=== PATIENT | male | born 1980 | race Two or more races ===

== ENCOUNTER 2024-07-14 17:28 | Inpatient (IN) | payer BC, OTHER ==
[~2024-07-14] VITALS: Ht 167.6 cm; Wt 107.6 kg
[2024-07-14 18:00] VITALS: PULSE 127; RESP 13; O2SAT 99
--- NOTE | 2024-07-14 18:02 | DVH ---
INDICATION: chest pain TECHNIQUE: Frontal view of the chest. COMPARISON: None FINDINGS: Finding:. The heart and mediastinal contours are grossly unremarkable. There is no evidence of pleur al disease. The lungs are clear. The bony structures of the chest are intact without fracture. IMPRESSION: 1. No evidence of acute disease.
[2024-07-14 18:10] LABS: Lymphocytes # (auto) 2.3 10 ^3/uL (0.4-5.4); Red Cell Distribution Width 13.4 % (11.8-14.3); White Blood Cell 8.2 10^3/uL (4.4-10.8)
--- NOTE | 2024-07-14 18:11 | ED.PDOC ---
HPI Comments 43-year-old male with PMHx Anxiety, Atrial Flutter brought in by EMS presents to the ED with a c/o chest pain. Patient states that in May 2024 he experienced Atrial Flutter and had two failed cardioversion attempts. Patient had an Angiogram on SaturdayJuly 06 that "was clean". Patient is scheduled for an ablation in August 2024 for the atrial flutter. Patient states that his pain was localized to his left chest, radiates to his left shoulder, describes as pressure. 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 Location: Chest (L) Radiation: Shoulder (L) Quality: Pressure Onset: At Rest Cardiac Risk Factors: Other (Atrial Flutter) PE Risk Factors: None History of: None Modifying Factors: Nothing Associated Signs and Symptoms: Palpitations Past Medical History PAST MEDICAL HISTORY: Anxiety Past Medical History (Other): Atrial Flutter Surgical History (Other): transesophageal echo, angiogram a week ago Family History Family History: Reviewed,noncontributory to illness Social History Smoker: Non-Smoker Alcohol: Denies ETOH Use Drugs: Denies Drug Use Lives In: Home Constitutional: denies: chills, diaphoresis, fatigue, fever, malaise, sweats, weakness, others EENTM: denies: blurred vision, double vision, ear bleeding, ear discharge, ear drainage, ear pain, ear ringing, eye pain, eye redness, hearing loss, mouth pain, mouth swelling, nasal discharge, nose bleeding, nose congestion, nose pain, photophobia, tearing, throat pain, throat swelling, voice changes, others Respiratory: denies: cough, hemoptysis, orthopnea, SOB at rest, shortness of breath, SOB with excertion, stridor, wheezing, others Cardiovascular: reports: chest pain, palpitations; denies: dizzy spells, diaphoresis, Dyspnea on exertion, edema, irregular heart beat, left arm pain, lightheadedness, PND, syncope, others Gastrointestinal: denies: abdomen distended, abdominal pain, blood streaked bowels, constipated, diarrhea, dysphagia, difficulty swallowing, hematemesis, melena, nausea, poor appetite, poor fluid intake, rectal bleeding, rectal pain, vomiting, others Genitourinary: denies: burning, dysuria, flank pain, frequency, hematuria, incontinence, penile discharge, penile sore, pain, testicle pain, testicle swelling, urgency, others Neurological: denies: dizziness, fainting, headache, left sided numbness, left sided weakness, numbness, paresthesia, pre-existing deficit, right sided numbness, right sided weakness, seizure, speech problems, tingling, tremors, wea kness, others Musculoskeletal: denies: back pain, gout, joint pain, joint swelling, muscle pain, muscle stiffness, neck pain, others Integumetry: denies: bruises, change in color, change in hair/nails, dryness, l aceration, lesions, lumps, rash, wounds, others Allergic/Immunocompromised: denies: Difficulty Healing, Frequent Infections, Hives, Itching, others Hematologic/Lymphatic: denies: anemia, blood clots, easy bleeding, easy bruising, swollen glands, others Endocrine: denies: excessive hunger, excessive sweating, excessive thirst, excessive urination, flushing, intolerance to cold, intolerance to heat, unexplained weight gain, unexplained weight loss, others Psychiatric: denies: anxiety, bipolar disorder, depression, hopeless, panic disorder, schizophrenia, sleepless, suicidal, others All Other Systems: Reviewed and Negative Physical Exam General Appearance: No Apparent Distress, Normal HEENT: Normal ENT Inspection, Pharynx Normal, TMs Normal Neck: Full Range of Motion, Non-Tender, Normal, Normal Inspection Respiratory: Chest Non-Tender, Lungs Clear, No Accessory Muscle Use, No Respiratory Distress, Normal Breath Sounds Cardiovascular: No Edema, No JVD, No Murmur, No Gallop, Normal Peripheral Pulses, Regular Rate/Rhythm Breast Exam: Deferred Gastrointestinal: No Organomegaly, Non Tender, No Pulsatile Mass, Normal Bowel Sounds, Soft Genitalia: Deferred Pelvic: Deferred Rectal: Deferred Extremities: No calf tenderness, Normal capillary refill, Normal inspection, Normal range of motion, Non-tender, No pedal edema Musculoskeletal : Apperance: Normal Neurologic: Alert, decorating equipment setter II-XII nml as Tested, No Motor Deficits, Normal Affect, Normal Mood, No Sensory Deficits Cerebellar Function: Normal Reflexes: Normal Skin: Dry, Normal Color, Warm Lymphatic: No Adenopathy EKG EKG : Pulse Rate (adult): 125 [place]: Normal Cardiac Rhythm: Aflutter Block: None Hypertrophy: None ST: Nonsp Was a procedure done? Was a procedure done?: No CP Differential Dx Differential Diagnosis: A-fib, A-Flutter, Angina, Anxiety / Panic Attack, Atrial Dysrhythmia, AV Block 1st Degree, AV Block 2nd Degree, AV Block 3rd Degree, Electrolyte Disorder, AK, PSVT, Sinus Tachycardia, Torsades De Pointes Differential Diagnosis: Angina, Chest Wall Pain, Cholelithiasis, Costochondri tis, Myocardial Infarction, Pericarditis, Pneumonia, Pneumothorax, Pulmonary Embolus X-Ray, Labs, Meds, VS Vital Signs Date Time Temp Pulse Resp B/P (MAP) Pulse Ox O2 Delivery O2 Flow Rate FiO2 07/14/24 18:24 120 07/14/24 18:11 125 07/14/24 18:00 127 13 99 Room Air* 0 21 07/14/24 18:00 98.1 127 13 130/108 (115) 99 98.1 07/14/24 17:41 98.6 125 18 117/83 (94) 97 98.6 07/14/24 17:32 125 Lab Test 07/14/24 17:51 Range/Units White Blood Count 8.2 4.4-10.8 10^3/uL Red Blood Count 6.07 H 4.5-5.90 10^6/uL Hemoglobin 18.2 H 13.5-17.5 g/dL Hematocrit 52.3 41.0-53.0 % Mean Corpuscular Volume 86.2 80.0-100.0 fL Mean Corpuscular Hemoglobin 29.9 28.0-32.0 pg Mean Corpuscular Hemoglobin Concent 34.7 32.0-36.0 g/dL Red Cell Distribution Width 13.4 11.8-14.3 % Platelet Count 235 140-450 10^3/uL Mean Platelet Volume 9.5 6.9-10.8 fL Neutrophils (%) (Auto) 56.4 37.0-80.0 % Lymphocytes (%) (Auto) 28.2 10.0-50.0 % Monocytes (%) (Auto) 10.5 0.0-12.0 % Eosinophils (%) (Auto) 3.9 0.0-7.0 % Basophils (%) (Auto) 1.0 0.0-2.0 % Neutrophils # (Auto) 4.6 1.6-8.6 10 ^3/uL Lymphocytes # (Auto) 2.3 0.4-5.4 10 ^3/uL Monocytes # (Auto) 0.9 0-1.3 10 ^3/uL Eosinophils # (Auto) 0.3 0-0.8 10 ^3/uL Basophils # (Auto) 0.1 0-0.2 10 ^3/uL Nucleated Red Blood Cells 0.6 % Sodium Level 143 136-145 mmol/L Potassium Level 4.2 3.5-5.1 mmol/L Chloride Level 107 98-107 mmol/L Carbon Dioxide Level 26 20-31 mmol/L Anion Gap 10 5-15 Blood Urea Nitrogen 15 9-23 mg/dL Creatinine 1.33 H 0.700-1.30 mg/dL Glomerular Filtration Rate Calc 68 >90 mL/min BUN/Creatinine Ratio 11.3 10.0-20.0 Serum Glucose 94 74-106 mg/dL Calcium Level 10.1 8.7-10.4 mg/dL Troponin I High Sensitivity < 3 L </=54 ng/L B-Type Natriuretic Peptide Pending Current Medications Medications (Trade) Dose Ordered Sig/Raquel Route Start Time Stop Time Status Last Admin Sodium Chloride 1,000 ml @ 1,000 mls/hr Q1H ONCE IV 07/14/24 17:45 07/14/24 18:44 DC 07/14/24 18:30 Amiodarone HCl 100 ml @ 600 mls/hr ONCE ONCE IV 07/14/24 18:30 07/14/24 18:39 DC 07/14/24 18:37 Time of 1ST Reevaluation: 18:30 Reevaluation 1ST: Unchanged Time of 2ND Reevaluation: 19:03 Reevaluation 2ND: Improved Patient Education/Counseling: Diagnosis, Treatment, Prognosis, Need For Follow Up Family Education/Counseling: No Family Present Additional Information The following tests were ordered, and results were reviewed by me: TROPONIN x3, EKG x3, BMP, CBC, BNP, CXR, NS Additional information was gathered from interviewing the following independent historian: 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 pt does not have evidence of AK, but the pain is suspicious for unstable angina. pt will be admitted for cardiology evaluation. he had aflutter with RVR, which is now improved on amiodarone drip Departure 1 Departure Time of Disposition: 19:05 Impression: Primary Impression: Atrial flutter Qualified Codes: I48.92 - Unspecified atrial flutter Additional Impressions: Tachycardia Unstable angina Disposition: ADMITTED INPATIENT Admit to: ICU Condition: Serious Discharged With: Self Critical Care Note Critical Care Time?: Yes (55 min-critical care time only) Critical care comment: due to concerns for patient's condition deteriorating, the care required my highest level of attention and readiness to intervene. i assessed the patient's condition, ordered the proper tests and treatments, reassessed for response and reviewed the results. i communicated with medical personnel and formulated a plan of care. total critical care time does not include any procedures Stability Stability form required: No Heart Score Heart Score: Heart Score Response (Comments) Value History Highly Suspicious 2 EKG Repolarization Disturb 1 Age 45-64 1 Risk Factors 1 or 2 risk factors 1 Troponin Normal limit 0 Total 5 I personally scribed for K[facility] PRESSLEY [email or web address] on 07/14/24 at 18:11. Electronically submitted by Trevor Rodriguez ([email or web address]). I personally scribed for KATIE PRESSLEY MD ([email or web address]) on 07/14/24 at 18:13. Electronically submitted by Trevor Rodriguez ([email or web address]). KATIE PRESSLEY MD July 14, 2024 18:11
[2024-07-14 18:12] LABS: Basophils # (auto) 0.1 10 ^3/uL (0-0.2); Eosinophils # (auto) 0.3 10 ^3/uL (0-0.8); Eosinophils % (auto) 3.9 % (0.0-7.0); Hematocrit 52.3 % (41.0-53.0); Hemoglobin 18.2 g/dL (13.5-17.5); Lymphocytes % (auto) 28.2 % (10.0-50.0); Mean Corpuscular Hemoglobin 29.9 pg (28.0-32.0); Mean Corpuscular Hgb Conc. 34.7 g/dL (32.0-36.0); Mean Corpuscular Volume 86.2 fL (80.0-100.0); Monocytes # (auto) 0.9 10 ^3/uL (0-1.3); Monocytes % (auto) 10.5 % (0.0-12.0); Neutrophils # (auto) 4.6 10 ^3/uL (1.6-8.6); Neutrophils % (auto) 56.4 % (37.0-80.0); Nucleated Red Blood Cells % 0.6 %; Platelet Count (auto) 235 10^3/uL (140-450); Red Blood Cells 6.07 10^6/uL (4.5-5.90)
[2024-07-14 18:17] LABS: Potassium 4.2 mmol/L (3.5-5.1); Sodium 143 mmol/L (136-145)
[2024-07-14 18:18] LABS: Anion Gap 10 (5-15); Calcium 10.1 mg/dL (8.7-10.4); Carbon Dioxide 26 mmol/L (20-31)
[2024-07-14 18:23] LABS: BUN/Creatinine Ratio 11.3 (10.0-20.0); Blood Urea Nitrogen 15 mg/dL (9-23); Glucose 94 mg/dL (74-106)
[2024-07-14 18:29] LABS: Chloride 107 mmol/L (98-107)
[2024-07-14] MEDS: SODIUM CHLORIDE 0.9% 1,000 ML IV ONE (18:30)
[2024-07-14] MEDS: AMIODARONE BOLUS KIT 100 ML IV ONE ×2 (18:37→20:44)
[2024-07-14] MEDS: AMIODARONE 360mg/200mL PREMIX 200 ML IV ONE (19:07)
[2024-07-14] MEDS ORDERED: ONDANSETRON HCL 4 MG/2 ML VIAL IV PRN (19:15)
[2024-07-14] MEDS ORDERED: MORPHINE SULFATE INJ 2 MG/ml SYRG IV PRN (19:15)
[2024-07-14] MEDS ORDERED: NITROGLYCERIN 0.4 MG SL TAB SL PRN (19:15)
[2024-07-14] MEDS ORDERED: TEMAZEPAM 15 MG CAP PO PRN ×2 (19:15→22:00)
[2024-07-14] MEDS ORDERED: ACETAMINOPHEN 325 MG TAB PO PRN (19:15)
[2024-07-14] MEDS: ASPirin 81 mg TAB PO ONE (20:05)
--- NOTE | 2024-07-14 22:05 | DVHHP2 ---
History of Present Illness Reason for Visit: CHEST PAIN History of Present Illness 43-YEAR-OLD MALE PRESENTS FOR EVALUATION OF CHEST PAIN. PATIENT REPORTS DEVELOPING LEFT-SIDED CHEST PRESSURE WHICH RADIATED TO HIS LEFT SHOULDER. PATIENT RECENTLY DIAGNOSED WITH ATRIAL FLUTTER. HE WAS SUPPOSED TO HAVE AN ABLATION THIS PAST SATURDAY BUT WAS CANCELED. DENIES SHORTNESS OR BREATH OR DIZZINESS. HE STATES HIS NEXT SCHEDULED ABLATION IS UNTIL AUGUST OF THIS YEAR. Past Medical History ANXIETY AND A FLUTTER Past Surgical History DENIES Family History NONCONTRIBUTORY Smoke: No ALCOHOL: none Drugs: None Lives: with Family Review of Systems Review of Systems REVIEW OF SYSTEMS ARE CURRENTLY NEGATIVE OTHERWISE ADDRESSED IN HPI. Allergies: Coded Allergies: NO KNOWN ALLERGIES (Unverified , 07/14/24) Medications Current Medications Medications Dose Ordered Sig/Raquel Route Start Time Stop Time Status Last Admin Dose Admin Nitroglycerin 0.4 mg Q5MINP PRN SL 07/14/24 19:15 Morphine Sulfate 2 mg Q30M PRN IV 07/14/24 19:15 Carvedilol 6.25 mg Q12HR PO 07/14/24 22:00 Sacubitril/ Valsartan 0.5 tab BID PO 07/15/24 10:00 Gabapentin 100 mg BID PO 07/14/24 22:00 Apixaban 5 mg BID PO 07/14/24 22:00 Aspirin 81 mg DAILY PO 07/15/24 10:00 Temazepam 15 mg QHSP PRN PO 07/14/24 19:15 Ondansetron HCl 4 mg Q4HP PRN IV 07/14/24 19:15 Acetaminophen 650 mg Q6HP PRN PO 07/14/24 19:15 Temazepam 15 mg HSPRN PRN PO 07/14/24 22:00 UNV Exam Vital Signs Vital Signs Date Time Temp Pulse Resp B/P (MAP) Pulse Ox O2 Delivery O2 Flow Rate FiO2 07/14/24 20:23 120 07/14/24 18:00 13 99 Room Air* 0 21 07/14/24 18:00 98.1 130/108 (115) 98.1 Exam GEN: 43-YEAR-OLD MALE IN MILD DISTRESS SKIN: WARM, DRY, NORMAL COLOR AND TEXTURE, NO RASH. HEENT: NORMOCEPHALIC ATRAUMATIC, MUCOUS MEMBRANES MOIST AND PINK. NECK: CERVICAL AND SUPRACLAVICULAR NODES NORMAL WITHOUT ENLARGEMENT, TRACHEA IS MIDLINE, THYROID GLAND IS NORMAL WITHOUT MASSES. PULMONARY: CLEAR TO AUSCULTATION AND PERCUSSION BILATERALLY. CARDIAC: I A FLUTTER ABDOMEN: SOFT, NONTENDER, NONDISTENDED, BOWEL SOUNDS PRESENT ALL 4 QUADRANTS, NO GUARDING, NO RIGIDITY, NO ORGANOMEGALY. EXTREMITIES: NO CYANOSIS, CLUBBING, NO EDEMA NEURO: CRANIAL NERVES II THROUGH XII GROSSLY INTACT, NORMAL AFFECT AND SPEECH, NO FOCAL MOTOR DEFICITS. Labs/Xrays ORDERING PHYSICIAN: THEODORA THAKUR MD PROCEDURE(s): CXRP - CHEST PORTABLE REASON: chest pain ORDER NUMBER(s): [id number], ACCESSION NUMBER(s): [id number] INDICATION: chest pain TECHNIQUE: Frontal view of the chest. COMPARISON: None FINDINGS: Finding:. The heart and mediastinal contours are grossly unremarkable. There is no evidence of pleural disease. The lungs are clear. The bony structures of the chest are intact without fracture. IMPRESSION: 1. No evidence of acute disease. Labs Test 07/14/24 19:10 07/14/24 17:51 Range/Units Troponin I High Sensitivity < 3 L </=54 ng/L Thyroid Stimulating Hormone (TSH) 3.37 0.55-4.78 uIU/mL White Blood Count 8.2 4.4-10.8 10^3/uL Red Blood Count 6.07 H 4.5-5.90 10^6/uL Hemoglobin 18.2 H 13.5-17.5 g/dL Hematocrit 52.3 41.0-53.0 % Mean Corpuscular Volume 86.2 80.0-100.0 fL Mean Corpuscular Hemoglobin 29.9 28.0-32.0 pg Mean Corpuscular Hemoglobin Concent 34.7 32.0-36.0 g/dL Red Cell Distribution Width 13.4 11.8-14.3 % Platelet Count 235 140-450 10^3/uL Mean Platelet Volume 9.5 6.9-10.8 fL Neutrophils (%) (Auto) 56.4 37.0-80.0 % Lymphocytes (%) (Auto) 28.2 10.0-50.0 % Monocytes (%) (Auto) 10.5 0.0-12.0 % Eosinophils (%) (Auto) 3.9 0.0-7.0 % Basophils (%) (Auto) 1.0 0.0-2.0 % Neutrophils # (Auto) 4.6 1.6-8.6 10 ^3/uL Lymphocytes # (Auto) 2.3 0.4-5.4 10 ^3/uL Monocytes # (Auto) 0.9 0-1.3 10 ^3/uL Eosinophils # (Auto) 0.3 0-0.8 10 ^3/uL Basophils # (Auto) 0.1 0-0.2 10 ^3/uL Nucleated Red Blood Cells 0.6 % Sodium Level 143 136-145 mmol/L Potassium Level 4.2 3.5-5.1 mmol/L Chloride Level 107 98-107 mmol/L Carbon Dioxide Level 26 20-31 mmol/L Anion Gap 10 5-15 Blood Urea Nitrogen 15 9-23 mg/dL Creatinine 1.33 H 0.700-1.30 mg/dL Glomerular Filtration Rate Calc 68 >90 mL/min BUN/Creatinine Ratio 11.3 10.0-20.0 Serum Glucose 94 74-106 mg/dL Calcium Level 10.1 8.7-10.4 mg/dL B-Type Natriuretic Peptide 47.85 0-100 pg/mL Assessment/Plan Assessment/Plan ASSESSMENT A FLUTTER CHEST PAIN ACUTE KIDNEY INJURY ANXIETY PLAN ADMIT THE PATIENT TO TELEMETRY TO THE HOSPITALIST CONTINUE AMIODARONE DRIP CARDIOLOGY CONSULT RESUME HOME MEDICATIONS CONTINUE TREATMENT PER ORDERS. Plan discussed with: Patient My Orders Orders - GORDO MCDOWELL AGACNP Procedure Category Date Status Time Nitroglycerin PHA 07/14/24 In Process Sublingual (Ntrostat 19:15 Morphine Sulfate PHA 07/14/24 In Process Injection 19:15 Stat Ekg For Chest GINA 07/14/24 In Process Pain 19:10 Notify Of Changes GINA 07/14/24 In Process From Base 19:10 Business Proposal Rep For GINA 07/14/24 In Process 24 Hours 19:10 Emergency Dysrhythmia GINA 07/14/24 In Process Protocol 19:10 Rhythm Strips Once GINA 07/14/24 In Process Every Shift 19:10 Oxygen By Nasal RT 07/14/24 Transmitted Cannula 19:10 Carvedilol Tablet PHA 07/14/24 In Process (Coreg Tablet) 22:00 Sacubitril-Valsartan PHA 07/15/24 In Process (Entresto 24-26 Mg 10:00 Gabapentin Capsule PHA 07/14/24 In Process (Neurontin Capsule) 22:00 Apixaban (Eliquis) PHA 07/14/24 In Process 22:00 Aspirin Tablet PHA 07/15/24 In Process 10:00 Basic Metabolic Panel LAB 07/15/24 Verified 04:00 Temazepam (Restoril) PHA 07/14/24 In Process 19:15 Ondansetron Hcl PHA 07/14/24 In Process (Zofran) 19:15 Cardiac DIET 07/15/24 Transmitted Diet-2gna,Lofat,Lochol Breakfast Echo 2d Mode Cardiac US 07/14/24 Logged DOP 19:12 Condition: Fair IGNA 07/14/24 In Process 19:12 Acetaminophen Tablet PHA 07/14/24 In Process (Tylenol Tablet) 19:15 Bedrest With Bathroom GINA 07/14/24 In Process Privileg 19:12 Admit ADMIT 07/14/24 Transmitted 21:53 * Cardiology Consult CONS 07/14/24 Transmitted 21:53 Lipid Panel LAB 07/14/24 In Process 21:53 Temazepam (Restoril) PHA 07/14/24 Logged 22:00 Date of Service: July 14, 2024 Billing Provider: GORDO MCDOWELL Common Visit Codes: [id number] INP/OBS CARE (HIGH) GORDO MCDOWELL July 14, 2024 22:05
[2024-07-14 22:15] LABS: Triglycerides 116 mg/dL (< 150)
[2024-07-14 22:17] LABS: Cholesterol 188 mg/dL (< 200); HDL Cholesterol 45 mg/dL (40-59)
[2024-07-14 22:41] VITALS: BP 112/85; PULSE 96; RESP 18; TEMP 98.1; O2SAT 96
[2024-07-14] MEDS ORDERED: GAB100C PO (22:53)
[2024-07-14] MEDS ORDERED: SACU1TAB PO (22:53)
[2024-07-14] MEDS ORDERED: APIX5TAB PO (22:53)
[2024-07-14] MEDS ORDERED: AMIO200T13 PO (22:53)
[2024-07-14] MEDS ORDERED: CARV6.2551 PO (22:53)
[2024-07-14 22:54] LABS: LDL Cholesterol 141 mg/dL (< 100)
[2024-07-14] MEDS: GABAPENTIN 100 MG CAP PO SCH (23:13)
[2024-07-14] MEDS: APIXABAN 5 MG TAB PO SCH (23:13)
[2024-07-14] MEDS: ALPRAZolam 0.25 MG TAB PO ONE (23:13)
[2024-07-14] MEDS: CARVEDILOL 3.125 MG TAB PO SCH (23:14)
[2024-07-15] VITALS (8 sets, daily range): BP systolic 98–116; BP diastolic 63–90; PULSE 86–117; RESP 17–20; TEMP 97.5–98.4; O2SAT 93–97
[2024-07-15] MEDS: AMIODARONE 360mg/200mL PREMIX 200 ML IV SCH (00:16)
[2024-07-15 07:10] LABS: Potassium 3.6 mmol/L (3.5-5.1); Sodium 143 mmol/L (136-145)
[2024-07-15 07:12] LABS: Anion Gap 7 (5-15); Carbon Dioxide 28 mmol/L (20-31)
[2024-07-15 07:17] LABS: BUN/Creatinine Ratio 7.8 (10.0-20.0); Blood Urea Nitrogen 10 mg/dL (9-23); Glucose 96 mg/dL (74-106)
[2024-07-15 07:18] LABS: Chloride 108 mmol/L (98-107)
[2024-07-15 07:19] LABS: Calcium 8.4 mg/dL (8.7-10.4)
[2024-07-15 09:03] LABS: Albumin 3.8 g/dL (3.2-4.8); Bilirubin, Total 0.4 mg/dL (0.2-1.0); Magnesium 2.3 mg/dL (1.6-2.6); Total Protein 6.3 g/dL (5.7-8.2)
[2024-07-15 09:44] LABS: INR 1.14 (0.9-1.15); Partial Thromboplastin Time 31.6 SEC (24.5-34.5); Prothrombin Time 11.9 sec (9.3-11.8)
[2024-07-15] MEDS: ASPirin 81 mg TAB PO SCH (09:58)
[2024-07-15] MEDS: SACUBITRIL-VALSARTAN 24mg/26mg TAB PO SCH (09:58)
[2024-07-15 10:16] LABS: Bilirubin, Direct 0.1 mg/dL (<0.3)
--- NOTE | 2024-07-15 10:26 | DVHINCON2 ---
Date Seen: July 15, 2024 Referring Physician AYSE Salas Reason for Consultation Atrial flutter History of Present Illness This is a 43-year-old male with past medical history of atrial flutter came to the hospital due to chest pain. Per patient, he had developed left-sided chest pain while driving. He describes the pain as burning type, 8/10 in intensity, radiated to left upper limb, with no clear exacerbating or relieving factor. Pain lasted for almost 20 minutes before came to the hospital, intensity gradually decreased and improved by getting medicine in hospital. He also reports nausea, and sweating. He denies shortness of breaths, cough, fever, palpitation, vomiting, abdominal pain, or any recent chest traumas/sick contact. Patient was diagnosed with atrial flutter at January 2024, underwent coronary angiogram on 07/10/2024 (per patient the study was normal, no records available), the patient was planned for ablation on 07/10/2024 but due to device malfunction in the ablation postponed for 07/17/2024. PMHx: Atrial flutter and Sciatalgia PSHx: Not significant Family history: Mom had hypertension Social history: Denies smoking, or any other drug history Home medication: Amiodarone 200 mg b.i.d., PA apixaban 5 mg b.i.d., aspirin 81 mg daily, carvedilol 6.25 b.i.d., Entresto b.i.d., gabapentin Allergic history: No known allergy Patient seen and examined at bedside. Patient is currently asymptomatic and has no chest pain and shortness of breath. Past Medical History Per H&P Past Surgical History Per H&P Family History: Diabetes mellitus G8 MOTHER G8 FATHER G8 SISTER Hypertension G8 MOTHER Family History Per H&P Social History Per H&P Allergies: Coded Allergies: NO KNOWN ALLERGIES (Unverified , 07/14/24) Home Meds Reported Medications Gabapentin (Gabapentin) 100 Mg Cap, 200 CAP PO HS 07/14/24 Apixaban Base (ELIQUIS) 5 Mg Tab, 1 TAB PO BID 07/14/24 Carvedilol (Carvedilol) 6.25 Mg Tab, 1 TAB PO BID 07/14/24 Sacubitril-Valsartan (Entresto 24-26 mg) 1 Tab Tab, 0.5 TAB PO BID 07/14/24 Amiodarone HCl (Amiodarone HCl) 200 Mg Tab, 1 TAB PO BID 07/14/24 Home Meds Per H&P Current Medications Current Medications Medications (Trade) Dose Ordered Sig/Raquel Route PRN Reason Start Time Stop Time Status Last Admin Nitroglycerin (Ntrostat Sublingual) 0.4 mg Q5MINP PRN SL FOR CHEST PAIN 07/14/24 19:15 Morphine Sulfate 2 mg Q30M PRN IV FOR CHEST PAIN 07/14/24 19:15 Carvedilol (Coreg Tablet) 6.25 mg Q12HR PO 07/14/24 22:00 07/15/24 09:57 Sacubitril/ Valsartan (Entresto 24-26 Mg tab) 0.5 tab BID PO 07/15/24 10:00 07/15/24 09:58 Gabapentin (Neurontin Capsule) 100 mg BID PO 07/14/24 22:00 07/14/24 23:13 Apixaban (Eliquis) 5 mg BID PO 07/14/24 22:00 07/15/24 09:58 Aspirin 81 mg DAILY PO 07/15/24 10:00 07/15/24 09:58 Temazepam (Restoril) 15 mg QHSP PRN PO FOR INSOMNIA 07/14/24 19:15 Ondansetron HCl (Zofran) 4 mg Q4HP PRN IV NAUSEA / VOMITING 07/14/24 19:15 Acetaminophen (Tylenol Tablet) 650 mg Q6HP PRN PO PAIN SCALE 1-3 OR TEMP>100.4 07/14/24 19:15 Temazepam (Restoril) 15 mg HSPRN PRN PO FOR INSOMNIA 07/14/24 22:00 UNV Review of Systems Per H&P Vital Signs Vital Signs Date Time Temp Pulse Resp B/P (MAP) Pulse Ox O2 Delivery O2 Flow Rate FiO2 07/15/24 09:57 88 106/73 07/15/24 05:00 97.9 17 97 97.9 07/14/24 22:41 Room Air* 0 21 Physical Exam General Appearance: Alert, Oriented X3, Cooperative, No acute distress HEENT: Atraumatic, PERRLA, EOMI, Mucous membrane moist/pink Respiratory: Clear to auscultation, Normal air movement Cardiovascular: Regular rate, Normal S1, Normal S2, No murmurs, no chest wall tenderness Abdominal: Normal bowel sounds, Soft, No tenderness, No hepatospenomegaly, No masses Extremities: No clubbing, No cyanosis, No edema, Normal pulses, No tenderness/swelling Skin: No rashes, No breakdown, No significant lesion Neuro: Normal gait, Normal speech, Strength at 5/5 X4 ext, Normal tone, Sensation intact, Cranial nerves 3-12 NL, Reflexes 2+ Psych/Mental Status: Mental status NL, Mood NL Labs/Diagnostic Data Labs Test 07/15/24 08:50 07/15/24 06:32 07/15/24 06:27 07/14/24 19:10 Range/Units Prothrombin Time 11.9 H 9.3-11.8 sec Prothrombin Time INR 1.14 0.9-1.15 Activated Partial Thromboplast Time 31.6 24.5-34.5 SEC Hemoglobin A1c 5.4 <5.7 % A1C Sodium Level 143 136-145 mmol/L Potassium Level 3.6 3.5-5.1 mmol/L Chloride Level 108 H 98-107 mmol/L Carbon Dioxide Level 28 20-31 mmol/L Anion Gap 7 5-15 Blood Urea Nitrogen 10 9-23 mg/dL Creatinine 1.29 0.700-1.30 mg/dL Glomerular Filtration Rate Calc 70 >90 mL/min BUN/Creatinine Ratio 7.8 L 10.0-20.0 Serum Glucose 96 74-106 mg/dL Calcium Level 8.4 L 8.7-10.4 mg/dL Magnesium Level 2.3 1.6-2.6 mg/dL Total Bilirubin 0.4 0.2-1.0 mg/dL Direct Bilirubin 0.1 <0.3 mg/dL Aspartate Amino Transferase (AST) 30 13-40 U/L Alanine Aminotransferase (ALT) 46 H 7-40 U/L Alkaline Phosphatase 81 46-116 U/L B-Type Natriuretic Peptide 92.41 0-100 pg/mL Total Protein 6.3 5.7-8.2 g/dL Albumin 3.8 3.2-4.8 g/dL Vitamin B12 Level 458 211-911 pg/mL Vitamin D 25-Hydroxy 35.2 30.0-100 ng/mL Troponin I High Sensitivity < 3 L </=54 ng/L Triglycerides Level 116 < 150 mg/dL Cholesterol Level 188 < 200 mg/dL LDL Cholesterol 141 H < 100 mg/dL HDL Cholesterol 45 40-59 mg/dL Thyroid Stimulating Hormone (TSH) 3.37 0.55-4.78 uIU/mL Test 07/14/24 17:51 Range/Units White Blood Count 8.2 4.4-10.8 10^3/uL Red Blood Count 6.07 H 4.5-5.90 10^6/uL Hemoglobin 18.2 H 13.5-17.5 g/dL Hematocrit 52.3 41.0-53.0 % Mean Corpuscular Volume 86.2 80.0-100.0 fL Mean Corpuscular Hemoglobin 29.9 28.0-32.0 pg Mean Corpuscular Hemoglobin Concent 34.7 32.0-36.0 g/dL Red Cell Distribution Width 13.4 11.8-14.3 % Platelet Count 235 140-450 10^3/uL Mean Platelet Volume 9.5 6.9-10.8 fL Neutrophils (%) (Auto) 56.4 37.0-80.0 % Lymphocytes (%) (Auto) 28.2 10.0-50.0 % Monocytes (%) (Auto) 10.5 0.0-12.0 % Eosinophils (%) (Auto) 3.9 0.0-7.0 % Basophils (%) (Auto) 1.0 0.0-2.0 % Neutrophils # (Auto) 4.6 1.6-8.6 10 ^3/uL Lymphocytes # (Auto) 2.3 0.4-5.4 10 ^3/uL Monocytes # (Auto) 0.9 0-1.3 10 ^3/uL Eosinophils # (Auto) 0.3 0-0.8 10 ^3/uL Basophils # (Auto) 0.1 0-0.2 10 ^3/uL Nucleated Red Blood Cells 0.6 % Assessment Chest pain, noncardiac Atrial flutter with RVR Systolic heart failure, likely tachycardia induced Obesity EKGs shows atrial flutter with RVR at 120s * Trop I and BNP is are within normal limits * Echo from 06/04/2024 shows severe global hypokinesia with LVEF 20-25% * Per patient, he underwent angiography on 06/04/2024 was a normal studies, reports not available * Chads Vasc score: 1 Plan/Recommendation (Case discussed with Dr. Robertson) * Patient has an appointment for ablation on 07/17/2024 * We sign of the patient, follow up with the Cardiology on outpatient basis * Discharge plan: Carvedilol 6.25 mg b.i.d., Entresto b.i.d., spironolactone 25 mg daily, Jardiance 10 mg daily * Rest of plan per primary team Thank you for allowing us to participate in this patient's care. Please call if you have any questions or concerns. Plan discussed with: Patient, Spouse, Other (RN) NYHA Physical activity limitations: NA Date of Service: July 15, 2024 Billing Provider: RICARDO ROBERTSON Sr., MD Cardiology Common Codes: [id number] INP/OBS CARE (High) MALDONADO DIAL RESDIENT July 15, 2024 10:26
--- NOTE | 2024-07-15 11:03 | DVHPNRES ---
Progress Note Date Seen: July 15, 2024 Resident Creating Document: MANDY JOHNSON RESIDENT Has the PT tested + for MRSA If YES, has PT been informed?: No Medical Necessity Reason Pt with a Central, PICC or Fol: No Subjective Review of Systems Mr. Santo Poole is a 43-year-old male with a past medical history of atrial flutter and sciatalgia who presented to the hospital with chest pain. He reports that while driving, he developed a burning-type left-sided chest pain, rated 8/10 in intensity, radiating to the left upper limb. The pain lasted approximately 20 minutes and gradually subsided after receiving medication in the hospital. He also experienced associated symptoms of nausea and sweating. He denies shortness of breath, cough, fever, palpitations, vomiting, abdominal pain, recent chest trauma, or sick contacts. He was diagnosed with atrial flutter in January 2024 and underwent a coronary angiogram on 07/10/2024, which he reports was normal (records unavailable). A planned ablation on the same day was postponed due to device malfunction and is rescheduled for August 2024. PMHx: Atrial flutter, Sciatalgia PSHx: Not significant FHx: Mother has hypertension SHx: Denies smoking or drug use Medications: Amiodarone 200 mg BID Apixaban 5 mg BID Aspirin 81 mg daily Carvedilol 6.25 mg BID Entresto BID Gabapentin Allergies: No known drug allergies (NKDA) Patient seen and examined at bedside. Currently asymptomatic. No chest pain or shortness of breath at the time of evaluation. Vitals and physical exam findings not provided. Patient reports: Feels better Objective vital signs Vital Sign Date Time Temp Pulse Resp B/P (MAP) Pulse Ox O2 Delivery O2 Flow Rate FiO2 07/15/24 09:57 88 106/73 07/15/24 09:00 97.6 20 93 97.6 07/14/24 22:41 Room Air* 0 21 Total Intake and Output 07/14/24 07/14/24 07/15/24 15:00 23:00 07:00 Intake Total 1200 ml 499.9 ml Output Total 300 ml Balance 1200 ml 199.9 ml medications Current Medications Medications Dose Ordered Sig/Raquel Route Start Time Stop Time Status Last Admin Dose Admin Nitroglycerin 0.4 mg Q5MINP PRN SL 07/14/24 19:15 Morphine Sulfate 2 mg Q30M PRN IV 07/14/24 19:15 Carvedilol 6.25 mg Q12HR PO 07/14/24 22:00 07/15/24 09:57 6.25 MG Sacubitril/ Valsartan 0.5 tab BID PO 07/15/24 10:00 07/15/24 09:58 0.5 TAB Gabapentin 100 mg BID PO 07/14/24 22:00 07/14/24 23:13 100 MG Apixaban 5 mg BID PO 07/14/24 22:00 07/15/24 09:58 5 MG Aspirin 81 mg DAILY PO 07/15/24 10:00 07/15/24 09:58 81 MG Temazepam 15 mg QHSP PRN PO 07/14/24 19:15 Ondansetron HCl 4 mg Q4HP PRN IV 07/14/24 19:15 Acetaminophen 650 mg Q6HP PRN PO 07/14/24 19:15 Temazepam 15 mg HSPRN PRN PO 07/14/24 22:00 UNV Examination Pt is lying on bed General Appearance: Alert, Oriented X3, Cooperative, Not in acute distress HEENT: Atraumatic, Mucous membranes moist/pink Respiratory: Clear to auscultation, Normal air movement, No added sounds Cardiovascular: Regular rate, Normal S1, Normal S2, No murmurs Abdominal: Active bowel sounds, Soft, no distention, no tenderness Extremities: No edema, Normal pulses, No tenderness/swelling Skin: No Significant rash, except past surgical scars Neuro: Normal speech, sensorimotor deficits none Psych/Mental Status: Mental status NL, Mood NL Nurse was there as sharperone during examination laboratory and microbiology Laboratory Tests 07/15/24 06:27 07/14/24 17:51 Test 07/15/24 06:27 Range/Units Serum Glucose 96 74-106 mg/dL Labs and/or images reviewed: Labs reviewed by me, Image(s) reviewed by me Problem List/Assessment/Plan Problem List/Assessment/Plan # Chest pain, ACS cannot be fully excluded - recent normal coronary angiogram, but ACS cannot be fully excluded - troponin negative and ECG showed atrial flutter with. - chest pain protocol - BNP not elevated - ordered echocardiogram - cardiology on board # Rule out structural heart disease because patient is on Entresto and Coreg # Atrial flutter, with secondary hypercoagulable state - amiodarone drip - Eliquis - Awaiting rescheduled ablation in August 2024. # Sciatalgia, stable No GI PPX Continue Eliquis Cardiac diet Goals of care discussed with the patient for more than 29 minutes: Full code status Case discussed with Dr. Maza, patient and nurse. Plan discussed with: Patient My Orders My Orders Orders - MANDY JOHNSON Procedure Category Date Status Time Drug Screen LAB 07/15/24 Logged 08:07 Urinalysis LAB 07/15/24 Logged 08:07 MANDY JOHNSON July 15, 2024 11:03
[2024-07-16 01:00] VITALS: BP 113/79; PULSE 114; RESP 18; TEMP 97.6; O2SAT 97
[2024-07-16 05:00] VITALS: BP 95/60; PULSE 80; RESP 18; TEMP 97.9; O2SAT 98
[2024-07-16 08:00] VITALS: PULSE 103
[2024-07-16 09:00] VITALS: BP 110/70; PULSE 86; RESP 20; TEMP 97.4; O2SAT 95
[2024-07-16] MEDS ORDERED: EMPA1TAB PO (12:01)
[2024-07-16] MEDS ORDERED: SPIR25TA PO (12:01)
--- NOTE | 2024-07-16 12:03 | DVHDSRES ---
Discharge Summary Date of Admission Resident Creating Document: MANDY JOHNSON RESIDENT July 14, 2024 at 19:10 Date of Discharge: July 16, 2024 Admitting Diagnosis Chest pain Labs/Diagnostic Data: Laboratory Results Test 07/15/24 08:50 07/15/24 06:32 07/15/24 06:27 07/14/24 19:10 Prothrombin Time 11.9 sec (9.3-11.8) Prothrombin Time INR 1.14 (0.9-1.15) Activated Partial Thromboplast Time 31.6 SEC (24.5-34.5) Hemoglobin A1c 5.4 % A1C (<5.7) Sodium Level 143 mmol/L (136-145) Potassium Level 3.6 mmol/L (3.5-5.1) Chloride Level 108 mmol/L (98-107) Carbon Dioxide Level 28 mmol/L (20-31) Anion Gap 7 (5-15) Blood Urea Nitrogen 10 mg/dL (9-23) Creatinine 1.29 mg/dL (0.700-1.30) Glomerular Filtration Rate Calc 70 mL/min (>90) BUN/Creatinine Ratio 7.8 (10.0-20.0) Serum Glucose 96 mg/dL (74-106) Calcium Level 8.4 mg/dL (8.7-10.4) Magnesium Level 2.3 mg/dL (1.6-2.6) Total Bilirubin 0.4 mg/dL (0.2-1.0) Direct Bilirubin 0.1 mg/dL (<0.3) Aspartate Amino Transferase (AST) 30 U/L (13-40) Alanine Aminotransferase (ALT) 46 U/L (7-40) Alkaline Phosphatase 81 U/L (46-116) B-Type Natriuretic Peptide 92.41 pg/mL (0-100) Total Protein 6.3 g/dL (5.7-8.2) Albumin 3.8 g/dL (3.2-4.8) Vitamin B12 Level 458 pg/mL (211-911) Vitamin D 25-Hydroxy 35.2 ng/mL (30.0-100) Troponin I High Sensitivity < 3 ng/L (</=54) Triglycerides Level 116 mg/dL (< 150) Cholesterol Level 188 mg/dL (< 200) LDL Cholesterol 141 mg/dL (< 100) HDL Cholesterol 45 mg/dL (40-59) Thyroid Stimulating Hormone (TSH) 3.37 uIU/mL (0.55-4.78) Test 07/14/24 17:51 White Blood Count 8.2 10^3/uL (4.4-10.8) Red Blood Count 6.07 10^6/uL (4.5-5.90) Hemoglobin 18.2 g/dL (13.5-17.5) Hematocrit 52.3 % (41.0-53.0) Mean Corpuscular Volume 86.2 fL (80.0-100.0) Mean Corpuscular Hemoglobin 29.9 pg (28.0-32.0) Mean Corpuscular Hemoglobin Concent 34.7 g/dL (32.0-36.0) Red Cell Distribution Width 13.4 % (11.8-14.3) Platelet Count 235 10^3/uL (140-450) Mean Platelet Volume 9.5 fL (6.9-10.8) Neutrophils (%) (Auto) 56.4 % (37.0-80.0) Lymphocytes (%) (Auto) 28.2 % (10.0-50.0) Monocytes (%) (Auto) 10.5 % (0.0-12.0) Eosinophils (%) (Auto) 3.9 % (0.0-7.0) Basophils (%) (Auto) 1.0 % (0.0-2.0) Neutrophils # (Auto) 4.6 10 ^3/uL (1.6-8.6) Lymphocytes # (Auto) 2.3 10 ^3/uL (0.4-5.4) Monocytes # (Auto) 0.9 10 ^3/uL (0-1.3) Eosinophils # (Auto) 0.3 10 ^3/uL (0-0.8) Basophils # (Auto) 0.1 10 ^3/uL (0-0.2) Nucleated Red Blood Cells 0.6 % Other Laboratory Tests 07/15/24 06:27 07/14/24 17:51 Brief Hx & Hospital Course: Mr. Santo Poole is a 43-year-old male with a known history of atrial flutter who presented to the hospital with complaints of chest pain. The patient reported developing a burning-type pain on the left side of his chest while driving, rated 8/10 in intensity and radiating to the left upper limb. The pain lasted approximately 20 minutes and gradually subsided after receiving medication in the hospital. He also experienced associated symptoms of nausea and sweating but denied shortness of breath, cough, fever, palpitations, vomiting, abdominal pain, or recent trauma. He was previously diagnosed with atrial flutter in January 2024 and underwent a coronary angiogram on July 10, 2024, which he reports was normal, although records were unavailable. A planned ablation on the same day was postponed due to device malfunction and rescheduled for July 17, 2024. Workup for chest pain ruled out acute coronary syndrome (ACS). Troponin levels were negative, and ECG showed atrial flutter without ischemic changes. He was managed under a chest pain protocol with cardiology consultation. The patient also has a history of systolic heart failure with reduced ejection fraction (HFrEF), not in acute exacerbation during this admission. BNP levels were not elevated, and echocardiogram revealed severe global hypokinesia with an LVEF of 2025%. He was continued on guideline-directed medical therapy, including Entresto and carvedilol. Atrial flutter was managed with an amiodarone drip and anticoagulation with Eliquis, given the associated hypercoagulable state. He was reminded of his upcoming ablation appointment. Additionally, he has a history of sciatica. The patients condition improved during hospitalization. He remained hemodynamically stable and was discharged home in stable condition. He was advised to resume his home medications, including carvedilol 6.25 mg twice daily, Entresto twice daily, spironolactone 25 mg daily, and Jardiance 10 mg daily. Discharge instructions were discussed, and the patient agreed to the plan. 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 Pt is lying on bed General Appearance: Alert, Oriented X3, Cooperative, Not in acute distress HEENT: Atraumatic, Mucous membranes moist/pink Respiratory: Clear to auscultation, Normal air movement, No added sounds Cardiovascular: Regular rate, Normal S1, Normal S2, No murmurs Abdominal: Active bowel sounds, Soft, no distention, no tenderness Extremities: No edema, Normal pulses, No tenderness/swelling Skin: No Significant rash, except past surgical scars Neuro: Normal speech, sensorimotor deficits none Psych/Mental Status: Mental status NL, Mood NL Nurse was there as ericane during examination Condition at Discharge: Stable Final Diagnosis/Problems List # Chest pain, ACS ruled out likely from flutter # Systolic heart failure, HfrEF Not in acute exacerbation-- BNP not elevated # Atrial flutter, with secondary hypercoagulable state # obesity with a BMI 38.3ald # Sciatica Discharge Disposition: Home Discharge Instruct/Medications Diet: Consistent carbohydrate, Cardiac 2g Na,low cholest Activity: No Restrictions, As Tolerated Follow Up/Referral: PCP and Cardiology for upcoming ablation Medications: Resume home medications Aldactone daily once Jardiance daily once Discharge Statement: "Patient was advised to return to the ER or call 911 if any headaches, dizziness, shortness of breath, chest pain, abdominal pain, bleeding, fevers, or worsening of medical condition. Patient was counseled about treatment plan, medications, possible side effects, patientverbalized understanding. All questions were answered to the best of my ability. This discharge took greater then 30 minutes in planning, reviewing documentation, counseling the patient, and discussing with other team members." ASSESSMENT ASSESSMENT Assessment # Chest pain, ACS ruled out likely from flutter # Systolic heart failure, HfrEF Not in acute exacerbation-- BNP not elevated # Atrial flutter, with secondary hypercoagulable state # obesity with a BMI 38.3ald # Bharata MANDY JOHNSON RESIDENT July 16, 2024 12:03
[2024-07-16 13:00] VITALS: BP 103/78; PULSE 118; RESP 20; TEMP 97.9; O2SAT 95
[2024-07-16 13:52] VITALS: BP 110/70; PULSE 86; RESP 20; TEMP 97.4; O2SAT 95
--- NOTE | 2024-07-16 14:48 | ECG ---
[facility] Test Date: 2024-07-14 Test Time: 17:32:30 Pat Name: LIZY KATZ Department: ED Room: 0286T A Gender: M Front Desk Associate: disha : 1980 Requested By: KATIE PRESSLEY Order Number: [id number] Reading MD: Measurements Intervals [place] Rate: 125 P: 84 IL: 248 QRS: 92 QRSD: 116 T: 68 QT: 356 QTc: 514 Interpretive Statements Sinus tachycardia Prolonged [place] interval Consider left atrial enlargement Nonspecific intraventricular conduction delay Inferior infarct, acute (LCx) Lateral leads are also involved Please click the below link to view image of tracing.
--- NOTE | 2024-07-17 12:25 | ECG ---
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
--- NOTE | 2024-07-17 12:26 | ECG ---
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
--- NOTE | 2024-07-17 12:27 | DVHSR ---
APPROVED REPORT EXAM: Two-dimensional and M-mode echocardiogram with Doppler and color Doppler. Blood Pressure: 113/63 mmHg INDICATION Chest Pain RISK FACTORS Obesity: Height: 5' 6", Weight: 236 DIMENSIONS LVDd5.5 (3.8-5.7cm)LA (2D)4.4 (1.9-4.0cm)Aortic Root3.0 (2.0-3.7cm) LVDs4.7 (2.5-4.0cm)LA (MM) (1.9-4.0cm)Aortic Cusp Exc1.8 (1.5-2.0cm) EF (%) 30.0 (55-70%)Rt. Atrium4.3 (1.9-4.0cm)Asc. Aorta cm IVSd1.0 (0.7-1.1cm)RV (D) (1.8-2.4cm) PWd1.0 (0.7-1.1cm) Mitral Valve MitralMitral Stenosis E wave1.00m/sMV Mean GR.mmHg A wave0.50m/sMV Peak GR.mmHg E/A ratio2.02D MVAcm2 Aortic Valve Aortic ValveAortic Stenosis V10.40m/Nannette Mean GR.2mmHg V20.90m/Nannette Peak GR.4mmHg LVOT Diameter2.4 (1.8-2.4cm)Doppler AVA2.01cm2 Conclusion Undetermined rhythm. LV enlargement. Left atrial enlargement. Mild dilation of the sinuses of Valsalva. Valves are normal. EF of 25-30% with global hypokinesis. Mild MR. No pericardial effusion masses or vegetations.
== END 2024-07-16 14:40 | disposition home or self-care (01) | DRG 309 ==
LOC: EDBD 17:28 → ER 17:33 → OVERFLOW 19:10 → TELE-WESTW 19:11
PROVIDERS: ADMIT Student in an Organized Health Care Education/Training Program; ATTEND Internal Medicine
DX: I48.92 Unspecified atrial flutter (principal); D68.59 Other primary thrombophilia; I20.0 Unstable angina; N17.9 Acute kidney failure, unspecified; I50.20 Unspecified systolic (congestive) heart failure; E66.9 Obesity, unspecified; M54.30 Sciatica, unspecified side; Z68.38 Body mass index [BMI] 38.0-38.9, adult; F41.9 Anxiety disorder, unspecified; Z83.3 Family history of diabetes mellitus; Z82.49 Family history of ischemic heart disease and other diseases of the circulatory system; Z79.82 Long term (current) use of aspirin; Z79.01 Long term (current) use of anticoagulants
CPT/HCPCS: 36415; 71045; 80048; 80061; 80076; 82306; 82607; 83036; 83735; 83880; 84443; 84484; 85025; 85610; 85730; 93005; 93306; 96365; 99291; G0378